=== PATIENT | male | born 1990 | race African-American/Black ===

== ENCOUNTER 2018-11-03 09:58 | Emergency (ER) | payer SELFPAY ==
[~2018-11-03] VITALS: Ht 180.3 cm; Wt 95.3 kg
[2018-11-03] MEDS ORDERED: LIDOCAINE HCL 1% 2 ML AMP INJ ONE (11:00)
[2018-11-03] MEDS ORDERED: BACITRACIN ZINC 0.9GM TP ONE (11:00)
== END 2018-11-03 11:15 | disposition home or self-care (01) ==
LOC: FSED 09:58
DX: L72.3 Sebaceous cyst (principal)
CPT/HCPCS: 10061; 99283; J2001; 69005